=== PATIENT | female | born 1950 | race Caucasian/White ===

== ENCOUNTER → 2016-05-07 | Outpatient (CLI) | payer BC ==
--- NOTE | 2016-05-08 13:39 | MM ---
Reason for exam: screening (asymptomatic). Last mammogram was performed 2 years and 1 month ago. History: Patient is postmenopausal. Family history of premenopausal breast cancer in sister at age 50. Physical Findings: A clinical breast exam by your physician is recommended on an annual basis and results should be correlated with mammographic findings. MG Screening Mammo w CAD Bilateral CC and MLO view(s) were taken. Prior study comparison: April 08, 2014, bilateral MG screening mammo w CAD. October 08, 2012, bilateral digital screening mammo w/CAD. There are scattered fibroglandular densities. No significant changes when compared with prior studies. ASSESSMENT: Negative, BI-RAD 1 RECOMMENDATION: Routine screening mammogram of both breasts in 1 year.
== END | disposition home or self-care (01) ==
LOC: RADMAMWWP 08:32
PROVIDERS: ATTEND Family Medicine
DX: Z12.31 Encounter for screening mammogram for malignant neoplasm of breast (principal)

== ENCOUNTER → 2017-03-18 | Outpatient (CLI) | payer BC ==
--- NOTE | 2017-03-18 09:01 | US ---
EXAMINATION TYPE: US abdomen complete DATE OF EXAM: 03/18/2017 COMPARISON: NONE CLINICAL HISTORY: R10.12 ABD PAIN LUQ. LUQ pain for several weeks, history of kidney stones EXAM MEASUREMENTS: Liver Length: 15.2 cm Gallbladder Wall: 0.2 cm CBD: 0.4 cm Spleen: 8.9 cm Right Kidney: 10.4 x 3.6 x 4.6 cm Left Kidney: 11.5 x 4.7 x 5.6 cm *Limited evaluation due to overlying bowel content Pancreas: visualized portions appear slightly heterogeneous Liver: visualized portions appear wnl Gallbladder: no evidence of stones Evidence for sonographic Aponte's sign: no CBD: wnl Spleen: wnl Right Kidney: no evidence of hydronephrosis Left Kidney: moderate hydronephrosis Upper IVC: wnl Abd Aorta: wnl The liver is homogenous. The intrahepatic portion of the IVC and proximal abdominal aorta are within normal limits. There is no evidence of cholelithiasis. Common bile duct is unremarkable. The visu alized portions of the pancreas are free of distinct mass. The spleen is unremarkable. Kidneys are s ymmetric and free of hydronephrosis. No renal lesions are seen. IMPRESSION: 1 no significant the.
== END | disposition home or self-care (01) ==
LOC: RADUSWWP 08:08
PROVIDERS: ATTEND Family Medicine
DX: N13.30 Unspecified hydronephrosis (principal)
CPT/HCPCS: 76700

== ENCOUNTER → 2017-05-05 | Outpatient (CLI) | payer BC ==
--- NOTE | 2017-05-05 11:57 | XR ---
Abdomen HISTORY: Ureteral stone, Z18.83 Frontal view of the abdomen correlated to prior abdomen dated 06/18/2012 There is a scoliosis. Calcifications are present over the left kidney, there may be 3-4 calcification s, largest measures 2 to 3 mm. Calcification in left hemipelvis is stable. Additional smaller calcifi cations are indeterminate within the pelvis. There is a large amount of retained fecal debris present . This may obscure underlying detail. No evident bowel obstruction or pneumoperitoneum. Lung bases ar e clear. IMPRESSION: Left-sided nephrolithiasis. Bowel gas may obscure detail. Scoliosis. Indeterminate pelvic calcifications.
== END | disposition home or self-care (01) ==
LOC: RADXRMAIN 08:51
PROVIDERS: ATTEND Urology
DX: N20.0 Calculus of kidney (principal)
CPT/HCPCS: 74018

== ENCOUNTER → 2017-05-21 | Outpatient (CLI) | payer BC ==
--- NOTE | 2017-05-21 13:01 | CT ---
EXAMINATION TYPE: CT urogram wo/w con DATE OF EXAM: 05/21/2017 HISTORY: Kidney stones, recent abnormal ultrasound. CT DLP: 1222.5mGycm Automated Exposure Control for Dose Reduction was Utilized. CONTRAST: CT scan of the abdomen and pelvis is performed without oral and without and with IV Contrast, patient injected with 100 mL of Isovue 300. COMPARISON: CT abdomen and pelvis dated 02-02-2011. Complete abdominal ultrasound March 18, 2017. FINDINGS: KUB: Noncontrast images show linear area of calcification centrally in left kidney favored vascular. There is additional 2 mm round calcification probable nonobstructing calculus mid to lower pole leve l left kidney coronal image 76. Post contrast images show symmetric cortical medullary uptake and exc retion from both kidneys with prominent in size but otherwise simple appearing parapelvic cysts in th e left kidney identified. Visualized course of both ureters show no suspicious dilatation or filling defects. Bladder shows satisfactory opacification and filling without wall thickening or wall mass. T here are occasional left-sided pelvic phleboliths. LUNG BASES: There is right greater than left bibasilar dependent atelectasis. LIVER/GB: Gallbladder has some dependent density suggestive of small stones and/or gallbladder sludge . No obvious stones however noted on recent ultrasound. PANCREAS: No significant abnormality is seen. SPLEEN: No significant abnormality is seen. ADRENALS: No significant abnormality is seen. BOWEL: There is prominent 3.5 cm diverticulum superiorly along proximal third portion of duodenum see n best coronal image 49 series 16. There is smaller medial diverticulum along medial aspect of second portion of duodenum seen on coronal image 51. UTERUS/ADNEXA: No gross abnormality seen. LYMPH NODES: No greater than 1cm abdominal or pelvic lymph nodes are appreciated. OSSEOUS STRUCTURES: Underlying S-shaped scoliosis is present. There is moderate multilevel spurring i n the lower thoracic spine. OTHER: No significant additional abnormality is seen. IMPRESSION: There are prominent left-sided otherwise simple appearing parapelvic cysts mimicking left -sided hydronephrosis redemonstrated likely accounting for recent abnormal ultrasound findings. There is single 2 mm nonobstructing calculus lower pole level left kidney without hydronephrosis or obstru cting calculus clearly seen bilaterally.
== END | disposition home or self-care (01) ==
LOC: RADCTMAIN 10:29
PROVIDERS: ATTEND Urology
DX: N20.0 Calculus of kidney (principal); N28.1 Cyst of kidney, acquired; Z88.6 Allergy status to analgesic agent; Z91.040 Latex allergy status
CPT/HCPCS: 74178; 74400; Q9967

== ENCOUNTER → 2018-04-07 | Outpatient (CLI) | payer MEDICARE ==
--- NOTE | 2018-04-07 15:56 | BD ---
EXAMINATION TYPE: Axial Bone Density DATE OF EXAM: 04/07/2018 Comparison: Prior DEXA bone scan 2009. CLINICAL HISTORY: Postmenopausal female. Height: 61.5 Weight: 156 FRAX RISK QUESTIONS: Alcohol (3 or more units per day): no Family History (Parent hip fracture): yes, father Glucocorticoids (More than 3mos): no (Ex: prednisone, prednisolone, methylprednisolone, dexamethasone, and hydrocortisone). History of Fracture in Adulthood: no Secondary Osteoporosis: 1. Type 1 Diabetes: no 2. Hyperthyroidism: no 3. Menopause before 45: no 4. Malnutrition: no 5. Chronic liver disease: no Rheumatoid Arthritis: no Current Tobacco Use: no RISK FACTORS HISTORY OF: Family History of Osteoporosis: unsure Active: yes Diet low in dairy products/other sources of calcium: no Postmenopausal woman: yes Take estrogen and/or progesterone medications: no Lost more than 2 inches in height since high school: possibly, states height was possibly 63 inches at one time Frequent falls: no Poor Health: no Hyperparathyroidism: no Adrenal Insufficiency: no MEDICATIONS: Thyroid Medications: no Osteoporosis Medications: no Additional Medications: calcium & VitD Additional History: EXAM MEASUREMENTS: Bone mineral densitometry was performed using the [employer] System. Bone mineral density as measured about the Lumbar spine is: ----- L1-L4(G/cm2): 0.955 T Score Values are as follows: ----- L2: -2.6 ----- L3: -1.9 ----- L4: -1.7 ----- L1-L4: -1.9 Bone mineral density has: Decreased -0.5% since study of: 05/26/2009 Bone mineral density about the R hip (g/cm2): 0.853 Bone mineral density about the L hip (g/cm2): 0.828 T Score values are as follows: -----R Neck: -1.3 -----L Neck: -1.5 -----R Total: -1.6 -----L Total: -1.8 Bone mineral density has: increased 1.9% since study of: 05/26/2009 IMPRESSION: Osteopenia (T Score between -2.5 and -1) remains present low back and both hips. There remains slightly increased risk of fracture and the patient may be considered for treatment. Re-Screen 2-5 years. NOTE: T-SCORE=SD OF THE YOUNG ADULT MEAN.
--- NOTE | 2018-04-09 08:57 | MM ---
Reason for exam: screening (asymptomatic). Last mammogram was performed 1 year and 11 months ago. History: Patient is postmenopausal. Family history of premenopausal breast cancer in sister at age 50. Physical Findings: A clinical breast exam by your physician is recommended on an annual basis and results should be correlated with mammographic findings. MG 3D Screening Mammo W/Cad Bilateral CC and MLO view(s) were taken. Prior study comparison: May 07, 2016, bilateral MG screening mammo w CAD. April 08, 2014, bilateral MG screening mammo w CAD. The breast tissue is heterogeneously dense. This may lower the sensitivity of mammography. No significant changes when compared with prior studies. ASSESSMENT: Benign, BI-RAD 2 RECOMMENDATION: Routine screening mammogram of both breasts in 1 year.
== END | disposition home or self-care (01) ==
LOC: RADMAMWWP 13:57
PROVIDERS: ATTEND Family Medicine
DX: Z12.31 Encounter for screening mammogram for malignant neoplasm of breast (principal); Z13.820 Encounter for screening for osteoporosis; M85.852 Other specified disorders of bone density and structure, left thigh; M85.851 Other specified disorders of bone density and structure, right thigh; M85.88 Other specified disorders of bone density and structure, other site
CPT/HCPCS: 77063; 77067; 77080

== ENCOUNTER 2018-05-13 07:54 | Day surgery (SDC) | payer MEDICARE ==
[2018-05-08 14:24] VITALS: BMI 27.8
[~2018-05-13 07:54] MED LIST: LACTATED RINGERS 1,000 ML IV SCH
[2018-05-13 08:12] VITALS: RESP 17; TEMP 97.2
[2018-05-13] MEDS ORDERED: PROPOFOL 10 MG/ML 20 ML VIAL IV ONE (08:18)
[2018-05-13] MEDS ORDERED: LIDOCAINE 1% INJ 10MG/ML (20 ML MDV) ONE (08:18)
--- NOTE | 2018-05-13 08:28 | P.GSHP ---
History of Present Illness H&P Date: 05/13/18 Chief Complaint: Colon cancer screening Patient here today for colonoscopy. Last colonoscopy 9 years ago. Family history of colon cancer in her father. Some mild left-sided pain but otherwise no bowel related complaints. Past Medical History Past Medical History: Hyperlipidemia, Renal Disease Additional Past Medical History / Comment(s): kidney stones History of Any Multi-Drug Resistant Organisms: None Reported Additional Past Surgical History / Comment(s): lithotripsy Past Anesthesia/Blood Transfusion Reactions: No Reported Reaction Smoking Status: Never smoker - Past Family History Father Family Medical History: Cancer Additional Family Medical History / Comment(s): colon cancer Sister(s) Family Medical History: Cancer Additional Family Medical History / Comment(s): breast Medications and Allergies Home Medications Medication Instructions Recorded Confirmed Type Aspirin [Adult Low Dose Aspirin EC] 81 mg PO DAILY 05/08/18 05/08/18 History Bioclens 1 dose PO BID 05/08/18 05/13/18 History Biotin 5,000 mcg PO DAILY 05/08/18 05/13/18 History Calcium Carbonate [Calcium] 500 mg PO DAILY 05/08/18 05/13/18 History Cholecalciferol [Vitamin D3] 1,000 unit PO DAILY 05/08/18 05/13/18 History Cyanocobalamin [Vitamin B-12] 500 mcg PO DAILY 05/08/18 05/13/18 History Magnesium Gluconate [Magonate] 500 mg PO DAILY 05/08/18 05/13/18 History Turmeric Root Extract [Turmeric] 500 mg PO DAILY 05/08/18 05/13/18 History Vitamin E (Dl,Tocopheryl Acet) 400 unit PO DAILY 05/08/18 05/08/18 History [Vitamin E] Allergies Allergy/AdvReac Type Severity Reaction Status Date / Time aspirin Allergy racing Verified 05/13/18 08:05 heart rate latex Allergy sores Verified 05/13/18 08:05 around mouth Surgical - Exam Vital Signs Temp Pulse Resp BP Pulse Ox 97.2 F L 92 17 120/58 97 05/13/18 08:10 05/13/18 08:10 05/13/18 08:10 05/13/18 08:10 05/13/18 08:10 Physical exam: General: Well-developed, well-nourished HEENT: Normocephalic, sclerae nonicteric Abdomen: Nontender, nondistended Extremities: No edema Neuro: Alert and oriented Assessment and Plan (1) Colon cancer screening Narrative/Plan: Procedure colonoscopy at this time Current Visit: Yes Status: Acute Code(s): Z12.11 - ENCOUNTER FOR SCREENING FOR MALIGNANT NEOPLASM OF COLON SNOMED Code(s): 198291311
--- NOTE | 2018-05-13 08:49 | P.PCN ---
Date of Procedure: 05/13/18 Procedure(s) Performed: PREOPERATIVE DIAGNOSIS: Colon cancer screening POSTOPERATIVE DIAGNOSIS: Small rectal polyp, mild diverticulosis PROCEDURE: Colonoscopy with biopsy ANESTHESIA: MAC SURGEON: Galo Hahn M.D. SPECIMENS: Rectal polyp ENDOSCOPIC PROCEDURE: The patient was placed on the endoscopy table in the left decubitus position. The Olympus colonoscope was inserted into the anus and passed under direct visualization to the base of the cecum. The appendiceal orifice was visualized. From that point the scope was slowly withdrawn inspecting all surfaces carefully. There were no neoplastic inflammatory or polypoid lesions throughout the cecum, ascending, transverse, descending, and sigmoid colon. In the rectum a small polyp was identified and removed using the cold biopsy forceps. The remainder the rectum appeared normal. There was mild left-sided diverticulosis with some tortuosity through the sigmoid colon possibly on the basis of previous diverticulitis. Digital rectal examination was normal. The patient was taken to the recovery room in stable condition per anesthesia guidelines. RECOMMENDATIONS: Await biopsy results. Recommend follow-up colonoscopy 5 years given the family history of colon cancer
[2018-05-13 09:03] VITALS: BP 149/86; PULSE 79
== END 2018-05-13 09:29 | disposition home or self-care (01) ==
LOC: ORWHC2ENDO 07:54
PROVIDERS: ATTEND Surgery
DX: Z12.11 Encounter for screening for malignant neoplasm of colon (principal); K62.1 Rectal polyp; E78.5 Hyperlipidemia, unspecified; K57.30 Diverticulosis of large intestine without perforation or abscess without bleeding; Z79.82 Long term (current) use of aspirin; Z88.6 Allergy status to analgesic agent; Z91.040 Latex allergy status; Z80.0 Family history of malignant neoplasm of digestive organs; Z87.442 Personal history of urinary calculi
CPT/HCPCS: 45380; J2001; J2704; 88305

== ENCOUNTER 2020-12-15 11:22 | Emergency (ER) | payer MEDICARE ==
[2020-12-15 12:11] VITALS: RESP 18
--- NOTE | 2020-12-15 13:52 | ED ---
General Adult HPI - General Chief complaint: Recheck/Abnormal Lab/Rx Stated complaint: Wants COVID test Time Seen by Provider: 12/15/20 13:15 Source: patient, RN notes reviewed Mode of arrival: ambulatory Limitations: no limitations - History of Present Illness Initial comments: 70-year-old female presents emergency Department with chief complaint of COVID- 19 symptoms. Patient states her symptoms started on Friday. Patient does feel improved at this time area patient is unvaccinated. Patient states that she does have slight cough, shortness of breath mild headache bodyaches. Patient is unvaccinated. Patient offers no other complaints. - Related Data Home Medications Medication Instructions Recorded Confirmed Aspirin [Adult Low Dose Aspirin EC] 81 mg PO DAILY 05/08/18 05/08/18 Bioclens 1 dose PO BID 05/08/18 05/13/18 Biotin [Biotin Disolve] 5,000 mcg PO DAILY 05/08/18 05/13/18 Calcium Carbonate [Calcium] 500 mg PO DAILY 05/08/18 05/13/18 Cholecalciferol [Vitamin D3] 1,000 unit PO DAILY 05/08/18 05/13/18 Cyanocobalamin [Vitamin B-12] 500 mcg PO DAILY 05/08/18 05/13/18 Magnesium Gluconate [Magonate] 500 mg PO DAILY 05/08/18 05/13/18 Turmeric Root Extract [Turmeric] 500 mg PO DAILY 05/08/18 05/13/18 Vitamin E (Dl,Tocopheryl Acet) 400 unit PO DAILY 05/08/18 05/08/18 [Vitamin E] Allergies Allergy/AdvReac Type Severity Reaction Status Date / Time aspirin Allergy racing Verified 12/15/20 12:11 heart rate latex Allergy sores Verified 12/15/20 12:11 around mouth Review of Systems ROS Statement: Those systems with pertinent positive or pertinent negative responses have been documented in the HPI. ROS Other: All systems not noted in ROS Statement are negative. Past Medical History Past Medical History: Hyperlipidemia History of Any Multi-Drug Resistant Organisms: None Reported Past Surgical History: No Surgical Hx Reported Past Psychological History: No Psychological Hx Reported Smoking Status: Never smoker Past Alcohol Use History: None Reported Past Drug Use History: None Reported General Exam Limitations: no limitations General appearance: alert, in no apparent distress Head exam: Present: atraumatic, normocephalic, normal inspection Eye exam: Present: normal appearance, PERRL, EOMI. Absent: scleral icterus, conjunctival injection, periorbital swelling ENT exam: Present: normal exam, normal oropharynx, mucous membranes moist Neck exam: Present: normal inspection, full ROM. Absent: tenderness, meningismus, lymphadenopathy Respiratory exam: Present: normal lung sounds bilaterally. Absent: respiratory distress, wheezes, rales, rhonchi, stridor Cardiovascular Exam: Present: regular rate (Patient was tachycardic at triage though, heart rate 88 on exam), normal rhythm, normal heart sounds. Absent: systolic murmur, diastolic murmur, rubs, gallop, clicks GI/Abdominal exam: Present: soft, normal bowel sounds. Absent: distended, tenderness, guarding, rebound, rigid Course Vital Signs 12/15/20 12:08 Temperature 98.9 F Pulse Rate 121 H Respiratory 18 Rate Blood Pressure 118/68 O2 Sat by Pulse 96 Oximetry Medical Decision Making - Lab Data Lab Results 12/15/20 Range/Units 12:08 Coronavirus (PCR) Detected A (Not Detectd) Disposition Clinical Impression: COVID-19 Disposition: HOME SELF-CARE Condition: Stable Instructions (If sedation given, give patient instructions): Coronavirus Disease 2019 (COVID-19) Additional Instructions: Please return to the Emergency Department if symptoms worsen or any other concerns. Is patient prescribed a controlled substance at d/c from ED?: No Referrals: Lela Hahn MD [Primary Care Provider] - 1-2 days Time of Disposition: 14:41
[2020-12-15] MEDS ORDERED: BAMLANIVIMAB (EUA) 700 MG, ETESEVIMAB (EUA) 1,400 MG in SODIUM CHLORIDE 0.9% 50 ML IVPB ONE (14:00)
[2020-12-15] MEDS ORDERED: SODIUM CHLORIDE 0.9% 50 ML IVPB ONE (14:30)
[2020-12-15 17:06] VITALS: BP 109/64; PULSE 98; TEMP 99
== END 2020-12-15 17:00 | disposition home or self-care (01) ==
LOC: EC 11:22
DX: U07.1 COVID-19 (principal); Z88.6 Allergy status to analgesic agent; Z91.040 Latex allergy status
CPT/HCPCS: 87635; 99284; 96365; J3490

== ENCOUNTER → 2021-04-24 | Outpatient (CLI) | payer MEDICARE ==
[2021-04-24 19:16] LABS: ALT 29 U/L (8-44); AST 24 U/L (13-35); African American GFR (CKD) 76.1 (60.0-200.0); Albumin 4.5 g/dL (3.8-4.9); Albumin/Globulin Ratio 1.67 (1.60-3.17); Alkaline Phosphatase 92 U/L (41-126); BUN/Creat Ratio 14.78 Ratio (12.00-20.00); Blood Urea Nitrogen 13.3 mg/dL (9.0-27.0); Calcium 9.7 mg/dL (8.7-10.3); Chloride 102 mmol/L (96-109); Chol/HDL Ratio 4.23 Ratio; Globulin 2.7 g/dL (1.6-3.3); Glucose 109 mg/dL (70-110); LDL Cholesterol,Calculated 165.6 mg/dL (0.0-131.0); Non-African American GFR(CKD) 65.7 (60.0-200.0); Potassium 4.4 mmol/L (3.5-5.5); Sodium 139 mmol/L (135-145); Total Protein 7.2 g/dL (6.2-8.2)
--- NOTE | 2021-04-24 19:42 | BD ---
EXAMINATION TYPE: Axial Bone Density DATE OF EXAM: 04/24/2021 COMPARISON: 04.07.2018 CLINICAL HISTORY: 70 YR OLD FEMALE....ICD-10 CODE: Z78.0 MENOPAUSAL Height: 61.2 Weight: 163 FRAX RISK QUESTIONS: NOTHING TO NOTE HERE RISK FACTORS HISTORY OF: Postmenopausal woman: YES, AT ABOUT 53 YRS OLD Hyperparathyroidism: NO Adrenal Insufficiency: NO MEDICATIONS: Prednisone or other steroids: ON AND OFF FOR PAIN AND ILLNESS ONLY Additional Medications: TUMS PERIODICALLY, VIT D AND CALCIUM Additional History: REFLUX, LOW D AND CALCIUM EXAM MEASUREMENTS: Bone mineral densitometry was performed using the [employer] System. Bone mineral density as measured about the Lumbar spine is: ----- L1-L4(G/cm2): 0.918 T Score Values are as follows: ----- L1: -2.4 ----- L2: -2.6 ----- L3: -2.6 ----- L4: -1.5 ----- L1-L4: -2.2 Bone mineral density has: Decreased -1.6% since study of: 04.07.2018 Bone mineral density about the R hip (g/cm2): 0.785 Bone mineral density about the L hip (g/cm2): 0.771 T Score values are as follows: -----R Neck: -2.0 -----L Neck: -1.9 -----R Total: -1.8 -----L Total: -1.9 Bone mineral density has: Decreased -2.1% since study of: 04.07.2018 FRAX%s: GRAPH PROVIDED ILLUSTRATES A 11.1% CHANCE FOR A MAJOR OSTEOPOROTIC FX AND A 1.9% FOR HIPS. ....PROBABILITY FOR FX IN 10 YRS TIME IMPRESSION: Osteopenia (T Score between -2.5 and -1). There is slightly increased risk of fracture and the patient may be considered for treatment. Re-Screen 2-5 years. NOTE: T-SCORE=SD OF THE YOUNG ADULT MEAN.
--- NOTE | 2021-04-25 12:39 | MM ---
Reason for exam: screening (asymptomatic). Last mammogram was performed 3 years and 1 month ago. History: Patient is postmenopausal. Family history of premenopausal breast cancer in sister at age 50. Physical Findings: A clinical breast exam by your physician is recommended on an annual basis and results should be correlated with mammographic findings. MG 3D Screening Mammo W/Cad Bilateral CC and MLO view(s) were taken. Prior study comparison: April 07, 2018, bilateral MG 3d screening mammo w/cad. May 07, 2016, bilateral MG screening mammo w CAD. There are scattered fibroglandular densities. No significant changes when compared with prior studies. ASSESSMENT: Benign, BI-RAD 2 RECOMMENDATION: Routine screening mammogram of both breasts in 1 year.
== END | disposition home or self-care (01) ==
LOC: RADMAMWWP 09:30
PROVIDERS: ATTEND Family Medicine
DX: Z12.31 Encounter for screening mammogram for malignant neoplasm of breast (principal); M85.89 Other specified disorders of bone density and structure, multiple sites; E78.00 Pure hypercholesterolemia, unspecified; R79.9 Abnormal finding of blood chemistry, unspecified; Z78.0 Asymptomatic menopausal state; Z80.3 Family history of malignant neoplasm of breast
CPT/HCPCS: 77063; 77067; 77080; 80053; 80061

== ENCOUNTER → 2023-05-26 | Outpatient (CLI) | payer MEDICARE ==
--- NOTE | 2023-05-27 18:54 | MM ---
Reason for Exam: Screening (asymptomatic). Last mammogram was performed 2 year(s) and 1 month(s) ago. Patient History: Menarche at age 18. First Full-Term at age 23. Postmenopausal. Sister had breast cancer, age 50. Risk Values: Angeline 5 year model risk: 3.0%. NCI Lifetime model risk: 8.7%. Prior Study Comparison: 05/07/2016 Bilateral Screening Mammogram, [facility]. 04/07/2018 Bilateral Screening Mammogram, [facility]. 04/24/2021 Bilateral Screening Mammogram, [facility]. Tissue Density: There are scattered areas of fibroglandular density. Findings: Analyzed By CAD. Unchanged asymmetric density superior right MLO view. There is no suspicious group of microcalcifications or new suspicious mass in either breast. Overall Assessment: Benign, BI-RAD 2 Management: Screening Mammogram of both breasts in 1 year. See note below in regards to patient's increased 5 year Angeline score. Patient should continue monthly self-breast exams. A clinical breast exam by your physician is recommended on an annual basis. This exam should not preclude additional follow-up of suspicious palpable abnormalities. Note on Angeline scores and lifetime risk: 1. A Angeline score greater than 3% is considered moderate risk. If this is the case, consider specialist referral to assess eligibility for a risk reducing agent. 2. If overall lifetime risk for the development of breast cancer is 20% or higher, the patient may qualify for future screening with alternating mammogram and breast MRI. Electronically signed and approved by: Angelica Hdez M.D. Radiologist
== END | disposition home or self-care (01) ==
LOC: RADMAMWWP 09:25
PROVIDERS: ATTEND Family Medicine
DX: Z12.31 Encounter for screening mammogram for malignant neoplasm of breast (principal); Z78.0 Asymptomatic menopausal state; Z80.3 Family history of malignant neoplasm of breast
CPT/HCPCS: 77063; 77067